=== PATIENT | female | born 2000 | race Caucasian/White ===

== ENCOUNTER 2024-11-14 19:36 | Outpatient (CLI) | payer MEDICAID, SELFPAY ==
[2024-11-14 19:50] VITALS: BMI 31.9
[2024-11-14 19:54] VITALS: PULSE 95; O2SAT 98
[2024-11-14 19:55] VITALS: BP 126/73; PULSE 90; RESP 16; TEMP 36.6
--- NOTE | 2024-11-14 20:14 | OB.TRI.NOTE ---
HPI - General General Date of Admission: 11/14/24 Date of Service: 11/14/24 Chief Complaint: abdominal pain HPI Narrative JOVANA SLADE, is a 23 F who presents abdominal pain in the evening for the last 3 night. Seems to radiate to RUQ. Not bothersome during the day. No bladder concerns. No vomiting. No LOF no bleeding. Urine and LFTs normal Maternal Data Information Final NE: 03/06/25 Gestational age: 24 PFSH PFSH Home Medications ?Medication ?Instructions ?Recorded ?Last Taken ?Type vit no.95-ferrous 1 tab PO DAILY 11/14/24 11/14/24 13:00 History fumarate 28 mg-folic acid 800 mcg tablet () Allergy/AdvReac Type Severity Reaction Status Date / Time No Known Allergies Allergy Verified 11/14/24 19:50 NST FHR Rate Baby A Baseline: 140 Accelerations:: 10 x 10 NST Reactive:: Appropriate for gestational age Assessment & Plan (1) 24 weeks gestation of : (2) Abdominal pain affecting : PLAN: Plan Normal labs. No contractions Follow up as outpatient
[2024-11-14 20:18] LABS: Color, Urine Yellow (Yellow); Glucose, Dipstick Normal (Normal); Ketone-Dipstick Negative (Negative); Leukocyte Esterase-Dipstick 25 /ul (Negative); Nitrite-Dipstick Negative (Negative); Occult Blood-Urine Negative /ul (Negative); Protein-Dipstick Negative (Negative); Specific Gravity, Urine 1.005 (1.002-1.030); Urine Bilirubin Dipstick Negative (Negative); Urine Clarity Clear (Clear); Urine Urobilinogen Normal (Normal); Urine pH 6.5 (5.0 - 8.0)
[2024-11-14 21:21] LABS: ALB/GLOB Ratio 1.3 RATIO (0.9-2.4); AST(SGOT) 17 U/L (<=31); Alanine Aminotransfer ALT/SGPT 14 U/L (<=34); Albumin, Serum 3.4 g/dL (3.5-5.0); Alkaline Phosphatase 68 U/L (35-104); Anion Gap 11 (5-15); BUN 8 mg/dL (4-19); BUN/Creat Ratio 14.4 RATIO (10-20); Calcium,Total 8.8 mg/dL (7.6-11.0); Carbon Dioxide 19.9 mmol/L (21.0-32.0); Chloride 106 mmol/L (98-108); Creatinine, Serum 0.54 mg/dL (0.70-1.20); EST Glomerular Filtration Rate 134 (>60); Globulin 2.6 g/dL (2.2-4.2); Glucose 106 mg/dL (70-99); Lipase 40 U/L (13-75); Potassium 3.5 mmol/L (3.3-5.1); Sodium Level 137 mmol/L (133-145); Total Bilirubin 0.16 mg/dL (0.00-1.30)
== END 2024-11-14 21:33 | disposition home or self-care (01) ==
LOC: WPOUT 19:44 → WP 19:46
PROVIDERS: Referring Provider Obstetrics & Gynecology; Visit Provider Obstetrics & Gynecology
DX: O99.891 Other specified diseases and conditions complicating pregnancy (principal); R10.9 Unspecified abdominal pain; Z3A.24 24 weeks gestation of pregnancy
CPT/HCPCS: 36415; 59025; 80053; 81002; 83690; 99221; G0378

== ENCOUNTER 2025-02-17 14:04 | Inpatient (IN) | payer MEDICAID, SELFPAY ==
[2025-02-17] VITALS (115 sets, daily range): BP systolic 106–199; BP diastolic 60–161; PULSE 78–176; RESP 15–20; TEMP 37–37.3; O2SAT 89–99; BMI 35.9
[2025-02-17 12:05] LABS: Hematocrit 35.5 % (37-47); Hemoglobin 12.2 g/dL (12.0-15.0); Mean Corp Hgb Conc 34.4 g/dL (32-36); Mean Corpuscular Volume 79.6 fL (81-99); Mean Platelet Vol. 11.0 fl (6.2-12.0); Platelet Count 182 K/mm3 (150-450); RBC Distribution Width CV 14.7 % (11.6-14.6); RBC Distribution Width SD 42.5 fl (35.1-43.9); Red Blood Count 4.46 M/mm3 (4.2-5.4); White Blood Count 10.6 K/mm3 (4.4-11.0)
[2025-02-17 12:53] LABS: AST(SGOT) 20 U/L (<=31); Alanine Aminotransfer ALT/SGPT 13 U/L (<=34); Uric Acid 5.3 mg/dL (2.6-6.0)
--- NOTE | 2025-02-17 13:19 | PCM.HP.OB ---
HPI - General General Date of Admission: 02/17/25 Date of Service: 02/17/25 Chief Complaint: contractions HPI Narrative JOVANA SLADE, is a 24 F who presents with contractions. The patient reports contractions since yesterday. Worsening in intensity. She has been leaking fluid since being on L&D. No vb. Good FM. No SAHU, vision changes, RUQ pain, nausea, vomiting. PFSH PFSH Home Medications ?Medication ?Instructions ?Recorded ?Last Taken ?Type vit no.95-ferrous 1 tab PO DAILY 11/14/24 11/14/24 13:00 History fumarate 28 mg-folic acid 800 mcg tablet () Allergy/AdvReac Type Severity Reaction Status Date / Time No Known Allergies Allergy Verified 11/14/24 19:50 NST FHR Rate Baby A Baseline: 140 Variability:: Moderate Accelerations:: 15 x 15 Decelerations:: None NST Reactive:: Yes FHR Category:: Category I Uterine Activity:: ctx's q 2 min Vital Signs Vital Signs Vital Signs: 02/17/25 11:18 02/17/25 11:18 02/17/25 11:19 Pulse Rate 88 Respiratory Rate Blood Pressure 161/91 H BP Systolic 161 BP Diastolic 91 Pulse Ox 97 02/17/25 11:19 02/17/25 11:23 02/17/25 11:23 Pulse Rate 78 88 Respiratory Rate Blood Pressure BP Systolic BP Diastolic Pulse Ox 97 02/17/25 11:26 02/17/25 11:26 02/17/25 11:26 Pulse Rate 81 Respiratory Rate 20 H Blood Pressure 166/95 H BP Systolic 166 BP Diastolic 95 Pulse Ox 02/17/25 11:28 02/17/25 11:28 02/17/25 11:33 Pulse Rate 89 86 Respiratory Rate Blood Pressure BP Systolic BP Diastolic Pulse Ox 98 02/17/25 11:33 02/17/25 11:38 02/17/25 11:38 Pulse Rate 91 Respiratory Rate Blood Pressure BP Systolic BP Diastolic Pulse Ox 97 97 02/17/25 11:42 02/17/25 11:42 02/17/25 11:43 Pulse Rate 86 82 Respiratory Rate Blood Pressure 141/88 H BP Systolic 141 BP Diastolic 88 Pulse Ox 02/17/25 11:43 02/17/25 11:48 02/17/25 11:48 Pulse Rate 80 Respiratory Rate Blood Pressure BP Systolic BP Diastolic Pulse Ox 97 97 02/17/25 11:53 02/17/25 11:53 02/17/25 11:57 Pulse Rate 92 Respiratory Rate Blood Pressure 157/88 H BP Systolic 157 BP Diastolic 88 Pulse Ox 96 02/17/25 11:57 02/17/25 11:58 02/17/25 11:58 Pulse Rate 85 97 Respiratory Rate Blood Pressure BP Systolic BP Diastolic Pulse Ox 97 02/17/25 12:03 02/17/25 12:03 02/17/25 12:06 Pulse Rate 93 112 H Respiratory Rate Blood Pressure BP Systolic BP Diastolic Pulse Ox 96 02/17/25 12:06 02/17/25 12:25 02/17/25 12:25 Pulse Rate 88 Respiratory Rate Blood Pressure BP Systolic BP Diastolic Pulse Ox 92 96 02/17/25 12:27 02/17/25 12:27 02/17/25 12:30 Pulse Rate 81 86 Respiratory Rate Blood Pressure 137/94 H BP Systolic 137 BP Diastolic 94 Pulse Ox 02/17/25 12:30 02/17/25 12:35 02/17/25 12:35 Pulse Rate 84 Respiratory Rate Blood Pressure BP Systolic BP Diastolic Pulse Ox 97 96 02/17/25 12:38 02/17/25 12:38 02/17/25 12:40 Pulse Rate 89 103 H Respiratory Rate Blood Pressure BP Systolic BP Diastolic Pulse Ox 93 02/17/25 12:40 02/17/25 12:42 02/17/25 12:42 Pulse Rate 93 Respiratory Rate Blood Pressure 151/93 H BP Systolic 151 BP Diastolic 93 Pulse Ox 96 02/17/25 12:45 02/17/25 12:45 02/17/25 12:50 Pulse Rate 82 79 Respiratory Rate Blood Pressure BP Systolic BP Diastolic Pulse Ox 97 02/17/25 12:50 02/17/25 12:55 02/17/25 12:55 Pulse Rate 85 Respiratory Rate Blood Pressure BP Systolic BP Diastolic Pulse Ox 97 97 02/17/25 12:59 02/17/25 12:59 02/17/25 12:59 Pulse Rate 87 Respiratory Rate Blood Pressure 159/92 H BP Systolic 159 BP Diastolic 92 Pulse Ox 93 02/17/25 13:00 02/17/25 13:00 02/17/25 13:05 Pulse Rate 90 94 Respiratory Rate Blood Pressure BP Systolic BP Diastolic Pulse Ox 97 02/17/25 13:05 02/17/25 13:10 02/17/25 13:10 Pulse Rate 85 Respiratory Rate Blood Pressure BP Systolic BP Diastolic Pulse Ox 96 96 02/17/25 13:13 02/17/25 13:13 02/17/25 13:15 Pulse Rate 86 100 Respiratory Rate Blood Pressure 166/96 H BP Systolic 166 BP Diastolic 96 Pulse Ox 02/17/25 13:15 Pulse Rate Respiratory Rate Blood Pressure BP Systolic BP Diastolic Pulse Ox 97 Labs Labs Labs: Hct 35.5 % (37-47) L Hgb 12.2 g/dL (12.0-15.0) Assessment & Plan (1) 37 weeks gestation of : PLAN: Discussed risk of early term delivery (2) Gestational hypertension: PLAN: BP severe on admission followed by mild range BP's. Recommend delivery and augmentation of labor if needed given elevated blood pressures. No symptoms of pre e today. Pre e labs on admission so far normal. P/c ratio pending. Discussed with patient possible magnesium for seizure prophylaxis and possible anti hypertensive medication. Questions answered. Cvx 3/80/-2, posterior with membrane palpated on exam. Patient desires epidural first prior to AROM. Will AROM after epidural and discussed possible pitocin for augmentation as well (3) Uterine contractions: PLAN: Cvx 1 cm yesterday in the office and 3 cm on admission today
[2025-02-17 13:23] LABS: Creatinine, Urine (random) 25.50 mg/dL (28.00-217.00); Protein, Urine (Random) < 6.0 mg/dL (0.0-12.0); Protein:Creat Ratio UNABLE TO CALCULATE mg/g CRE (0-200)
[2025-02-17] MEDS: Lactated Ringers 1,000 ML 50 ML IV (14:00)
[2025-02-17] MEDS: Oxytocin 15 Units/NS 250ml 15 UNITS/250 ML IV.SOLN 2 UNITS IV (15:40)
[2025-02-17] MEDS: Lactated Ringers 1,000 ML 999 ML IV (15:43)
[2025-02-17] MEDS: Magnesium Sulfate 4gm/100mL 4 GM/100 ML IV.SOLN. IV (16:42)
[2025-02-17] MEDS: Magnesium Sulfate 20 GM/500 ML BAG IV (17:05)
[2025-02-17] MEDS: fentaNYL-bupivacaine (epidural) 100 ML BAG EPIDURAL ×2 (18:57→20:55)
--- NOTE | 2025-02-17 19:31 | NURSING ---
see labor charting for VS
--- NOTE | 2025-02-17 19:31 | NURSING ---
see labor charting for VS
[2025-02-17 19:58] LABS: Syphilis Antibodies Nonreactive (Nonreactive)
[2025-02-18] VITALS (75 sets, daily range): BP systolic 102–132; BP diastolic 56–85; PULSE 84–139; RESP 14–17; TEMP 36.5–37.7; O2SAT 90–98
[2025-02-18] MEDS: Oxytocin 15 Units/NS 250ml 15 UNITS/250 ML IV.SOLN 334 UNITS IV (00:23)
--- NOTE | 2025-02-18 00:42 | OB.VAGDELI_ITS ---
Assessment & Plan (1) 37 weeks gestation of : (2) Uterine contractions: (3) Gestational hypertension: Vaginal Delivery Maternal Presentation Maternal Presentation: Medically Indicated Induction Type of Induction: Pitocin and Amniotomy Medical Reason for Induction: Gestational Hypertension (severe) Vaginal Delivery Information Procedure Performed: Spontaneous Vaginal Delivery Surgeon/Practitioner: Ellen Maria Date of Procedure: 02/18/25 Pre-Procedure Diagnosis: 37 week gestation, gestational HTN with severe features Post-Procedure Diagnosis: As above Type of anesthesia: Epidural Special Medications: None Estimated Blood Loss: 100 mL Findings Description of procedure: Patient was completed and pushing. Head of infant delivered followed by the shoulders and body without any traction, force, or delay. A loose nuchal cord x 1 without compression was noted and delivered through the nuchal cord. A vigorous VMI was placed on maternal abdomen. The cord was clamped and cut after a 60 second delay. The placenta delivered spontaneously. The placenta was noted to be normal appearing and intact with a 3VC. Fundus firm and bleeding scant. A first degree vaginal laceration was repaired in usual fashion using 3-0 Vicryl. A vaginal sweep was performed. Sponge and sharp counts were correct. 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
[2025-02-18] MEDS: Magnesium Sulfate 20 GM/500 ML BAG IV ×2 (03:04→14:29)
[2025-02-18 16:35] LABS: Hematocrit 31.1 % (37-47); Hemoglobin 10.2 g/dL (12.0-15.0); Immature Granulocytes Count 0.080 X10^3/uL (0.0-0.0); Mean Corp Hgb Conc 32.8 g/dL (32-36); Mean Corpuscular Volume 82.3 fL (81-99); Mean Platelet Vol. 10.6 fl (6.2-12.0); NRBC Flagged by Analyzer 0 % (0-5); Platelet Count 167 K/mm3 (150-450); RBC Distribution Width CV 15.4 % (11.6-14.6); RBC Distribution Width SD 46.5 fl (35.1-43.9); Red Blood Count 3.78 M/mm3 (4.2-5.4); White Blood Count 13.4 K/mm3 (4.4-11.0)
[2025-02-18 16:52] LABS: AST(SGOT) 27 U/L (<=31); Alanine Aminotransfer ALT/SGPT 12 U/L (<=34); Albumin, Serum 3.1 g/dL (3.5-5.0); Alkaline Phosphatase 200 U/L (35-104); Anion Gap 11 (5-15); BUN 8 mg/dL (4-19); BUN/Creat Ratio 9.8 RATIO (10-20); Calcium,Total 7.7 mg/dL (7.6-11.0); Carbon Dioxide 23.1 mmol/L (21.0-32.0); Chloride 105 mmol/L (98-108); Estimated Creatinine Clearance 131.07 ml/min (50-250); Globulin 2.7 g/dL (2.2-4.2); Glucose 104 mg/dL (70-99); Potassium 4.1 mmol/L (3.3-5.1)
[2025-02-18] MEDS: Senna/Docusate Sodium 1 Tablet PO (19:32)
[2025-02-19] VITALS (20 sets, daily range): BP systolic 117–152; BP diastolic 68–87; PULSE 80–108; RESP 16–18; TEMP 36.3–36.8; O2SAT 92–96
--- NOTE | 2025-02-19 11:32 | PN.OBGYN_ITS ---
Subjective Subjective ` Patient is doing well. She denies headache, vision changes, upper abdominal pain, nausea, vomiting. She denies chest pain or shortness of breath. She feels her leg swelling has improved. Lochia is normal. She is ambulating voiding without difficulty. She is eating without nausea or vomiting. She offers no complaints morning. Objective Data Objective Data Vital Signs: Vital Signs Temp Pulse Resp BP Pulse Ox O2 Del Method 98.1 F 100 18 127/68 H 96 Room Air 02/19/25 08:35 02/19/25 10:02 02/19/25 08:35 02/19/25 10:02 02/19/25 08:35 02/19/25 08:35 Oxygen Delivery Method Room Air Weight: 216 lb Body Mass Index (BMI) 35.9 Intake & Output: Intake and Output for Last 24 Hours 02/17/25 02/18/25 02/19/25 23:59 23:59 23:59 Intake Total 1651.72 / 1701.72 3395.36 / 3495.36 591.67 / 591.67 Output Total 950 / 1000 2825 / 2825 Balance 701.72 / 701.72 570.36 / 670.36 591.67 / 591.67 Lab / Micro Data 02/18/25 16:20 02/18/25 16:20 Labs: Laboratory Results - last 24 hr 02/18/25 16:20: WBC 13.4 H, RBC 3.78 L, Hgb 10.2 L, Hct 31.1 L, MCV 82.3, MCH 27.0, MCHC 32.8, RDW Std Deviation 46.5 H, RDW Coeff of Kylee 15.4 H, Plt Count 167, MPV 10.6, Immature Gran % (Auto) 0.600, Neut % (Auto) 79.1 H, Lymph % (Auto) 12.0 L, [place] % (Auto) 7.8, Eos % (Auto) 0.3, Baso % (Auto) 0.2, Absolute Neuts (auto) 10.6 H, Absolute Lymphs (auto) 1.60, Nucleated RBC % 0, Sodium 139, Potassium 4.1, Chloride 105, Carbon Dioxide 23.1, Anion Gap 11, BUN 8, Creatinine 0.78, Estim Creat Clear Calc 131.07, Est GFR (MDRD) Non-Af 110, B UN/Creatinine Ratio 9.8 L, Glucose 104 H, Calcium 7.7, Total Bilirubin 0.22, AST 27, ALT 12, Alkaline Phosphatase 200 H, Total Protein 5.7 L, Albumin 3.1 L, Globulin 2.7, Albumin/Globulin Ratio 1.2 Physical Exam Const alert and no apparent distress General Appearance: comfortable HEENT normocephalic Resp normal respiratory effort Extremity no calf tenderness Extremity Narrative: 1+ pitting edema bilaterally Assessment & Plan (1) Gestational hypertension: PLAN: S/p 24 hours mag. BP's well controlled on Labetalol 100 mg BID. No symptoms of pre e. Discussed monitoring until tomorrow and then likely d/c as long as BP's continue to be well controlled. Discussed baby ASA with next . Recommend preventative cardiology as outpatient (2) Vaginal delivery: PLAN: PPD#1 doing well. Routine care. Likely d/c tomorrow (3) Obstetric vaginal laceration:
[2025-02-20] VITALS (8 sets, daily range): BP systolic 129–145; BP diastolic 81–87; PULSE 80–95; RESP 14–17; TEMP 36.5–36.6; O2SAT 94–96
[2025-02-20] MEDS: Hydrocortisone 2.5% Crm 1 APPLIC TOPICAL (07:56)
[2025-02-20] MEDS: SELF ADMINISTRATION OF MEDS 1 EACH NOTE (07:56)
--- NOTE | 2025-02-20 08:26 | PCM.PN.OB ---
Subjective Subjective Doing well. Ambulating and voiding without difficulty. Mild lochia. Breast feeding. No SAHU or vision changes Objective Data Objective Data Vital Signs: Vital Signs Temp Pulse Resp BP Pulse Ox O2 Del Method 98 F 80 14 131/82 H 96 Room Air 02/20/25 07:50 02/20/25 07:50 02/20/25 07:50 02/20/25 07:50 02/20/25 07:50 02/20/25 07:50 Oxygen Delivery Method Room Air Weight: 97.976 kg Body Mass Index (BMI) 35.9 Intake & Output: Intake and Output for Last 24 Hours 02/18/25 02/19/25 02/20/25 23:59 23:59 23:59 Intake Total 3395.36 / 3495.36 591.67 / 591.67 Output Total 2825 / 2825 Balance 570.36 / 670.36 591.67 / 591.67 Lab / Micro Data 02/18/25 16:20 02/18/25 16:20 ROS Constitutional Constitutional: Denies headache(s) Cardiovascular Cardiovascular: Denies chest pain or dyspnea Gastrointestinal Gastrointestinal: Denies nausea or vomiting Genitourinary Genitourinary: Denies dysuria Physical Exam Const alert, oriented x3 and no apparent distress General Appearance: cooperative and comfortable Eyes PERRL and EOMs intact bilaterally Resp normal respiratory effort GI soft to palpation and non-tender Narrative: Fundus firm, below umbilicus. Uterus Palpation: uterus fundus firm ( below umbilicus) Extremity normal to inspection and full ROM Neuro oriented x3 and CN's II-XII intact bilaterally Psych mental status grossly normal Assessment & Plan (1) Vaginal delivery: (2) Gestational hypertension: PLAN: home on labetalol BID PLAN: Plan D/C home follow up 72 hours Precautions reviewed
--- NOTE | 2025-02-20 08:27 | PCM.DC.SUM ---
Providers Date of Admission: 02/17/25 Date of Discharge: 02/20/25 Primary Care Physician: Katarina Primary Care Phys Reason For Visit: LABOR & DELIVERY Diagnosis Discharge Diagnosis (1) Vaginal delivery: Status: Acute Code(s): O80 - Encounter for full-term uncomplicated delivery (2) Gestational hypertension: Status: Acute Code(s): O13.9 - Gestational [-induced] hypertension without significant proteinuria, unspecified trimester Plan: home on labetalol BID Plan D/C home follow up 72 hours Precautions reviewed Medications at Discharge Home Medications vit no.95-ferrous fumarate 28 mg-folic acid 800 mcg tablet () 1 tab PO DAILY 11/14/24 famotidine 20 mg tablet (Acid Controller) 20 mg PO DAILY REFLUX 02/17/25 ferrous sulfate 325 mg (65 mg iron) tablet (Feosol) 325 mg PO .QD ANEMIA 02/17/25 labetalol 100 mg tablet 100 mg PO BID #60 tabs 02/20/25 Hospital Course Operations None Procedures None Summary of Care Provided Minutes Spent on Discharge: 21 Hospital Course: Admitted with elevated BP. Pr/cr normal/ Magnesium for severe BP. treated with labetalol. without complication. Breast feeding. Physical Exam Const alert and no apparent distress Narrative: Fundus firm, below umbilicus. Weight / BMI Weight Weight: 97.976 kg Body Mass Index (BMI) 35.9 ABG / Lab / Microbiology Data 02/18/25 16:20 02/18/25 16:20 D/C Instructions May resume sexual activity in: 6 weeks DC O2, CPAP, BIPAP Needs Home O2 Discharge instructions: No Please Follow Up With: Danielle Sanchez MD When: Follow up with our office in 1-2 and 6 weeks or as needed. [phone] Meaningful Use Info Meaningful Use Meaningful Use Diagnoses (Choose all that apply): None applicable Discharge Plan Admission Admit Date/Time: 02/17/25 14:04 Primary Reason for Your Visit: NEHEMIAS Attending Provider: Ellen Maria Primary Care Provider: Care Physician,Katarina Primary Discharge Orders/Prescriptions Prescriptions: New labetalol 100 mg Tablet 100 mg PO BID Qty: 60 0RF Continued famotidine [Acid Controller] 20 mg tablet 20 mg PO DAILY ferrous sulfate [Feosol] 325 mg (65 mg iron) tablet 325 mg PO .QD PNV cmb#95-ferrous fumarate-FA [] 28 mg iron- 800 mcg tablet 1 tab PO DAILY Referrals / Follow Up: Care Physician,No Primary [Primary Care Provider] - Disposition Disposition (needs filled in before D/C Order can be placed): Home, Self Care
== END 2025-02-20 12:15 | disposition home or self-care (01) | DRG 560 ==
PROVIDERS: Admitting Provider Advanced Practice Midwife; Referring Provider Advanced Practice Midwife; Visit Provider Obstetrics & Gynecology
DX: O13.4 Gestational [pregnancy-induced] hypertension without significant proteinuria, complicating childbirth (principal); Z37.0 Single live birth; O69.81X0 Labor and delivery complicated by cord around neck, without compression, not applicable or unspecified; O70.0 First degree perineal laceration during delivery; Z3A.37 37 weeks gestation of pregnancy
CPT/HCPCS: 59025; 59050; 80053; 82565; 82570; 84156; 84450; 84460; 84550; 85025; 85027; 86780; 86850; 86900; 86901; 99221; G0378; J2405